=== PATIENT | male | born 1940 | race Caucasian/White ===

== ENCOUNTER 2018-03-11 15:19 | Inpatient (IN) ==
--- NOTE | 2018-03-11 16:27 | XR ---
EXAM DATE: 03/11/2018 4:21 PM EST AGE/SEX: 78 years / Male INDICATIONS: Trauma. Patient fell off of bed today. CLINICAL DATA: This is the patient's initial encounter. Patient reports that signs and symptoms have been present for 1 day and indicates a pain score of 0/10. MEDICAL/SURGICAL HISTORY: Hypertension. Diabetes. None. COMPARISON: . FINDINGS: Single AP view of the chest. Mild elevation of the left hemidiaphragm. Mild subsegmental atelectasis at the left lung base. Lungs otherwise clear. No evidence of pleural effusion or pneumothorax. CONCLUSION: No acute cardiopulmonary disease identified. Electronically signed by: Daniel Brian MD Board Certified Radiologist 03/11/2018 4:26 PM EST
--- NOTE | 2018-03-11 16:28 | XR ---
EXAM DATE: 03/11/2018 4:22 PM EST AGE/SEX: 78 years / Male INDICATIONS: Left hip pain post fall. Patient fell out of bed. CLINICAL DATA: This is the patient's initial encounter. Patient reports that signs and symptoms have been present for 1 day and indicates a pain score of 10/10. MEDICAL/SURGICAL HISTORY: Hypertension. Diabetes. None. COMPARISON: No prior exams available for comparison. FINDINGS: AP view of the pelvis. AP view and lateral view of the left hip. Bone alignment within normal limits. No evidence of fracture. Hips within normal limits. No evidence of joint narrowing. CONCLUSION: No evidence of fracture. Electronically signed by: Daniel Brian MD Board Certified Radiologist 03/11/2018 4:27 PM EST
[2018-03-11 16:41] LABS: Baso # (Auto) 0.1 th/mm3 (0.0-0.2); Baso % (Auto) 0.6 % (0.0-2.0); Eos # (Auto) 0.1 th/mm3 (0.0-0.4); Eos % (Auto) 1.1 % (0.0-4.0); Hematocrit 41.5 % (39.0-51.0); Hemoglobin 13.8 gm/dL (13.0-17.0); Lymph # (Auto) 0.5 th/mm3 (1.0-4.8); Lymph % (Auto) 5.6 % (9.0-44.0); Mean Corpuscular HGB Conc 33.3 % (32.0-36.0); Mean Corpuscular Hemoglobin 29.5 pg (27.0-34.0); Mean Corpuscular Volume 88.8 fL (80.0-100.0); Mean Platelet Volume 8.2 fL (7.0-11.0); Mono # (Auto) 0.6 th/mm3 (0.0-0.9); Neut % (Auto) 86.7 % (16.0-70.0); Platelet Count 108 th/mm3 (150-450); Red Blood Count 4.68 mil/mm3 (4.50-5.90); Red Cell Distribution Width 16.5 % (11.6-17.2); White Blood Count 9.2 th/mm3 (4.0-11.0)
--- NOTE | 2018-03-11 16:47 | ED ---
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 benzodiazepine use Physicians Team ED Provider: Robbin Ball ED Midlevel Provider: Ashlyn Reed Primary Care Provider: UNKNOWN, Attending Provider: Cedrick Brunson Other Providers: Mook Triplett ED Status: Left Department Discharge Information Discharge Date/Time: 03/11/18 22:31
[2018-03-11 16:54] LABS: Activated Partial Thrombo Time 32.2 sec (23.4-31.7); INR 1.1 Ratio; Prothrombin Time 11.4 sec (9.8-11.6)
[2018-03-11 17:18] LABS: Alanine Aminotransferase 64 U/L (12-78); Albumin 3.4 g/dL (3.4-5.0); Anion Gap 8 meq/L (5-15); Aspartate Aminotransferase 189 U/L (15-37); Blood Urea Nitrogen 47 mg/dL (7-18); Calcium 8.8 mg/dL (8.5-10.1); Carbon Dioxide 27.7 meq/L (21.0-32.0); Chloride 104 meq/L (98-107); Glomerular Filtration Rate 25 mL/min (>89); Glucose,Random 81 mg/dL (74-106); Potassium 4.7 meq/L (3.5-5.1); Sodium 140 meq/L (136-145)
[2018-03-11] MEDS ORDERED: Sod Chloride 0.9% Inj 1,000 ML IV.SIG SCH ×2 (17:30→17:45)
[2018-03-11 17:32] LABS: Alkaline Phosphatase 95 U/L (45-117); Creatine Kinase 6074 U/L (39-308); Total Protein 6.3 g/dL (6.4-8.2); Troponin I 0.29 ng/mL (0.02-0.05)
[2018-03-11 17:44] LABS: CKMB Percent 0.1 % (0.0-4.0); Creatine Kinase MB 3.6 ng/mL (0.5-3.6)
--- NOTE | 2018-03-11 18:02 | CT ---
EXAM DATE: 03/11/2018 5:48 PM EST AGE/SEX: 78 years / Male INDICATIONS: Altered mental status. CLINICAL DATA: This is the patient's initial encounter. Patient reports that signs and symptoms have been present for 1 day and indicates a pain score of 5/10. MEDICAL/SURGICAL HISTORY: Diabetes. Hypertension. None. RADIATION DOSE: 39.26 CTDI (mGy) COMPARISON: No prior exams available for comparison. TECHNIQUE: CT of the head without contrast. Using automated exposure control and adjustment of the mA and/or kV according to patient size, radiation dose was kept as low as reasonably achievable to ob tain optimal diagnostic quality images. DICOM format image data is available electronically for revi ew and comparison. FINDINGS: There is no evidence for intracranial hemorrhage, mass effect, mass lesions, or edema. The visualize d bony structures appear intact. Slight degree of brain atrophy is seen. Slight periventricular whit e matter changes are seen nonspecific mostly consistent with chronic small vessel ischemic changes. There are no signs of acute infarction for technique. CONCLUSION: Slight chronic small vessel ischemic and atrophic changes. Electronically signed by: Jaime Ross MD Board Certified Radiologist 03/11/2018 6:01 PM EST
[2018-03-11 18:54] LABS: Bilirubin,Urine Negative (Negative); Clarity,Urine Clear (Clear); Color,Urine Yellow (Yellw/Straw); Glucose,Urine (UA) Negative (Negative); Leukocyte Esterase,Urine Negative (Negative); Mucus,Urine Few /lpf (Occasional); Nitrite,Urine Negative (Negative); Specific Gravity,Urine 1.015 (1.002-1.035)
[2018-03-11 18:59] LABS: Amphetamine Screen,Urine Neg (Neg); Barbiturate Screen,Urine Neg (Neg); Cannabinoid Screen,Urine Neg (Neg); Cocaine Screen,Urine Neg (Neg)
[2018-03-11 19:02] LABS: Opiate Screen,Urine Neg (Neg)
[2018-03-11] MEDS ORDERED: Bisacodyl 10 MG Supp RECTAL PRN (19:37)
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
[2018-03-11] MEDS ORDERED: Dextrose 50% in Water 50 ML Vial IV.PUSH PRN (20:28)
[2018-03-11] MEDS: Insulin NovoLOG Aspart Correctional Sugar Inj SQ SCH (21:07)
[2018-03-11] MEDS: Senna/Docusate Sodium 8.6/50 MG Tablet PO SCH (21:07)
[2018-03-11] MEDS: Sod Chloride 0.9% Inj 1,000 ML IV.CONT SCH (21:08)
[2018-03-11] MEDS: clonazePAM 0.5 MG Tablet PO SCH (21:13)
[2018-03-12 01:01] LABS: Troponin I 0.15 ng/mL (0.02-0.05)
[2018-03-12 01:14] LABS: CKMB Percent 0.1 % (0.0-4.0); Creatine Kinase MB 2.4 ng/mL (0.5-3.6)
[2018-03-12] MEDS: Acetaminophen 325 MG Tablet PO PRN ×2 (04:44→17:00)
[2018-03-12] MEDS: Sod Chloride 0.9% Inj 1,000 ML IV.CONT SCH ×3 (06:21→16:53)
[2018-03-12 06:55] LABS: Baso % (Auto) 0.6 % (0.0-2.0); Eos # (Auto) 0.1 th/mm3 (0.0-0.4); Eos % (Auto) 1.9 % (0.0-4.0); Hematocrit 39.9 % (39.0-51.0); Hemoglobin 13.2 gm/dL (13.0-17.0); Lymph # (Auto) 0.5 th/mm3 (1.0-4.8); Lymph % (Auto) 7.3 % (9.0-44.0); Mean Corpuscular Hemoglobin 29.2 pg (27.0-34.0); Mean Corpuscular Volume 88.3 fL (80.0-100.0); Mono # (Auto) 0.6 th/mm3 (0.0-0.9); Mono % (Auto) 8.3 % (0.0-8.0); Neut # (Auto) 5.6 th/mm3 (1.8-7.7); Neut % (Auto) 81.9 % (16.0-70.0); Platelet Count 99 th/mm3 (150-450); Red Blood Count 4.52 mil/mm3 (4.50-5.90); Red Cell Distribution Width 16.3 % (11.6-17.2); White Blood Count 6.8 th/mm3 (4.0-11.0)
[2018-03-12] MEDS ORDERED: Gabapentin 300 MG Capsule PO SCH (09:00)
[2018-03-12] MEDS: Insulin NovoLOG Aspart Correctional Sugar Inj SQ SCH ×4 (09:13→20:07)
[2018-03-12] MEDS: Senna/Docusate Sodium 8.6/50 MG Tablet PO SCH ×2 (09:14→20:07)
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
[2018-03-12 10:09] LABS: Lymphocytes 8 % (9-44); Monocytes 13 % (0-8)
[2018-03-12 10:10] LABS: Platelet Morphology Normal (Normal)
--- NOTE | 2018-03-12 14:44 | ECG ---
Date Performed: 03/11/2018 Time Performed: 17:21:43 PTAGE: 78 years EKG: Sinus rhythm NORMAL ECG NO PREVIOUS TRACING DOCTOR: Pasha Bergeron Interpretating Date/Time 03/12/2018 14:43:23
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
[2018-03-12 19:06] LABS: Albumin 3.1 g/dL (3.4-5.0); Anion Gap 6 meq/L (5-15); Aspartate Aminotransferase 105 U/L (15-37); Blood Urea Nitrogen 36 mg/dL (7-18); Carbon Dioxide 26.3 meq/L (21.0-32.0); Chloride 109 meq/L (98-107); Glomerular Filtration Rate 42 mL/min (>89); Glucose,Random 106 mg/dL (74-106); Potassium 4.3 meq/L (3.5-5.1); Sodium 141 meq/L (136-145)
[2018-03-12 19:20] LABS: Alanine Aminotransferase 58 U/L (12-78); Alkaline Phosphatase 108 U/L (45-117); Creatine Kinase 1362 U/L (39-308); Total Protein 6.1 g/dL (6.4-8.2); Troponin I 0.06 ng/mL (0.02-0.05)
[2018-03-12 19:45] LABS: CKMB Percent 0.1 % (0.0-4.0); Creatine Kinase MB 1.3 ng/mL (0.5-3.6)
[2018-03-12] MEDS: clonazePAM 0.5 MG Tablet PO SCH (20:07)
[2018-03-13] MEDS: Sod Chloride 0.9% Inj 1,000 ML IV.CONT SCH ×2 (03:11→13:01)
[2018-03-13] MEDS: Senna/Docusate Sodium 8.6/50 MG Tablet PO SCH (08:13)
[2018-03-13] MEDS: Gabapentin 300 MG Capsule PO SCH (08:13)
[2018-03-13] MEDS: Insulin NovoLOG Aspart Correctional Sugar Inj SQ SCH ×4 (08:13→21:05)
[2018-03-13 09:24] LABS: Anion Gap 6 meq/L (5-15); Blood Urea Nitrogen 28 mg/dL (7-18); Carbon Dioxide 24.7 meq/L (21.0-32.0); Chloride 110 meq/L (98-107); Glomerular Filtration Rate 47 mL/min (>89); Glucose,Random 100 mg/dL (74-106); Potassium 4.3 meq/L (3.5-5.1); Sodium 141 meq/L (136-145)
[2018-03-13 09:27] LABS: Creatine Kinase 730 U/L (39-308)
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
[2018-03-13 09:48] LABS: CKMB Percent 0.1 % (0.0-4.0)
[2018-03-13] MEDS: Benzonatate 100 MG Capsule PO PRN ×2 (12:22→21:19)
[2018-03-13] MEDS: Acetaminophen 325 MG Tablet PO PRN (17:55)
[2018-03-13] MEDS: clonazePAM 0.5 MG Tablet PO SCH (21:19)
[2018-03-14] MEDS: Senna/Docusate Sodium 8.6/50 MG Tablet PO SCH ×2 (00:30→08:05)
[2018-03-14] MEDS: Sod Chloride 0.9% Inj 1,000 ML IV.CONT SCH (00:30)
[2018-03-14 07:19] LABS: Calcium 9.5 mg/dL (8.5-10.1); Carbon Dioxide 26.2 meq/L (21.0-32.0); Potassium 4.3 meq/L (3.5-5.1)
[2018-03-14] MEDS: Gabapentin 300 MG Capsule PO SCH (08:04)
[2018-03-14] MEDS: Insulin NovoLOG Aspart Correctional Sugar Inj SQ SCH (08:07)
[2018-03-14 09:01] VITALS: BP 179/86; RESP 16; TEMP 98.3
--- NOTE | 2018-03-14 09:30 | P.PNPSY ---
Subjective Remarks: Patient has been seen for psychiatric reevaluation today. The patient is calm, cooperative, very pleasant. The patient explains that he feels much better now. He says that he cannot understand what happened with him, this has never happened to him before. He reports to be in a good mood, ready to go back to [place]. He denies symptomatology of depression, anhedonia, denies hopelessness , denies helplessness, he denies suicidal and homicidal ideation, he denies visual and auditory hallucinations. The patient is fully oriented x3, no attention deficit, no fluctuation of consciousness, no gross cognitive impairment present. The patient is logical, coherent and relevant, there is no paranoia, delusions visible at this moment. Mental Status Examination Appearance: Appropriate Consciousness: Alert Orientation: x4 Motor Activity: Normal gait Speech: Unremarkable Language: Adequate, Perseveration Attention and Concentration: Adequate Memory: Unremarkable Mood: Appropriate Affect: Appropriate Thought Process & Associations: Intact Thought Content: Appropriate Hallucination Type: None Delusion Type: None Suicidal Ideation: No Suicidal Plan: No Suicidal Intention: No Homicidal Ideation: No Homicidal Plan: No Homicidal Intention: No Insight: Adequate Judgment: Adequate Assessment and Plan - Assessment (1) Delusional disorder Code(s): F22 - Delusional disorders Status: Acute (2) Delirium due to another medical condition Code(s): F05 - Delirium due to known physiological condition Status: Acute (3) SHRUTHI (acute kidney injury) Code(s): N17.9 - Acute kidney failure, unspecified Status: Acute - Plan Plan: The patient does not present any neuropsychiatric symptoms or require an immediate psychiatric intervention. Patient denies depression, anxiety, rolanda and psychosis. He denies suicidal and homicidal ideation. He is fully oriented x3. Logical, coherent and relevant. Does not meet criteria for psychiatric admission. He is psychiatrically clear to be DC back home. Justification for Continued Inpatient Stay: No admission is indicated
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
[2018-03-14 10:17] VITALS: O2SAT 92
[2018-03-14 11:14] VITALS: PULSE 82
== END 2018-03-14 11:25 | disposition home or self-care (01) | DRG 71 ==
LOC: NEPD 15:19 → NEDA 19:49 → N04 20:24
PROVIDERS: ADMIT Hospitalist; ATTEND Hospitalist
DX: I10 Essential (primary) hypertension; E03.9 Hypothyroidism, unspecified; Z88.0 Allergy status to penicillin; G93.40 Encephalopathy, unspecified; R74.8 Abnormal levels of other serum enzymes; M62.82 Rhabdomyolysis; G47.00 Insomnia, unspecified; N17.9 Acute kidney failure, unspecified; E11.40 Type 2 diabetes mellitus with diabetic neuropathy, unspecified; Z88.2 Allergy status to sulfonamides; N40.0 Benign prostatic hyperplasia without lower urinary tract symptoms; Z88.1 Allergy status to other antibiotic agents; F41.9 Anxiety disorder, unspecified; E78.5 Hyperlipidemia, unspecified; Z87.891 Personal history of nicotine dependence; R05 Cough
CPT/HCPCS: 70450; 71010; 71045; 73502; 76937; 80048; 80053; 80307; 81001; 82550; 82552; 82948; 82962; 83735; 84484; 85025; 85610; 85730; 90760; 90761; 93005; 96360; 96361; 97110; 97116; 97162; 99285; J2405; J7030; P9612